=== PATIENT | male | born 1960 | race Caucasian/White ===

== ENCOUNTER → 2023-11-27 | Outpatient (CLI) | payer OTHER ==
[~2023-11-27] MED LIST: HYDACE5 PO; METF500 PO
[2023-11-27 14:59] LABS: Creatinine, Urine Random 70.9 mg/dL (27.00-270.00); Microalb/Creat Ratio UR, Rand 26.657 mg/g (0.000-30.000); Microalbumin, Random Urine 18.9 mg/L (0.000-20.000)
== END ==
LOC: LAB SHORT 12:26 → LAB 12:26
PROVIDERS: Family Medicine
DX: E11.9 Type 2 diabetes mellitus without complications (principal)
CPT/HCPCS: 82043; 82570

== ENCOUNTER 2024-05-10 07:58 | Day surgery (SDC) | payer OTHER ==
[~2024-05-10] VITALS: Ht 180.3 cm; Wt 79.3 kg
[~2024-05-10 07:58] MED LIST changes: +Lactated Ringer's 1,000 ML IV ONE; +propofoL 50 ML IV ONE
[2024-05-10] MEDS ORDERED: AMLO10 (08:46)
[2024-05-10] MEDS ORDERED: METF500 (08:46)
[2024-05-10] MEDS ORDERED: LISI20 (08:47)
[2024-05-10] MEDS ORDERED: STEGLATRO15 MG (08:47)
[2024-05-10] MEDS ORDERED: Crestor40 MG (08:56)
[2024-05-10] MEDS ORDERED: RYBELSUS3 MG (08:56)
[2024-05-10] MEDS ORDERED: Lactated Ringer's 1,000 ML IV ONE (09:48)
[2024-05-10 11:15] VITALS: BP 117/77
== END 2024-05-10 11:15 | disposition home or self-care (01) ==
LOC: ORSCSDS 07:58
PROVIDERS: Internal Medicine Gastroenterology
PROC: 0DBK8ZX Excision of Ascending Colon, Via Natural or Artificial Opening Endoscopic, Diagnostic (ICD-10-PCS; principal; 2024-05-10 09:30)
PROC: 0DBP8ZX Excision of Rectum, Via Natural or Artificial Opening Endoscopic, Diagnostic (ICD-10-PCS; principal; 2024-05-10 09:30)
PROC: 0DBN8ZX Excision of Sigmoid Colon, Via Natural or Artificial Opening Endoscopic, Diagnostic (ICD-10-PCS; principal; 2024-05-10 09:30)
PROC: 0DBL8ZX Excision of Transverse Colon, Via Natural or Artificial Opening Endoscopic, Diagnostic (ICD-10-PCS; principal; 2024-05-10 09:30)
PROC: 0DBM8ZX Excision of Descending Colon, Via Natural or Artificial Opening Endoscopic, Diagnostic (ICD-10-PCS; principal; 2024-05-10 09:30)
DX: Z12.11 Encounter for screening for malignant neoplasm of colon (principal); D12.2 Benign neoplasm of ascending colon; D12.4 Benign neoplasm of descending colon; K63.5 Polyp of colon; K62.1 Rectal polyp; Z87.891 Personal history of nicotine dependence; E78.5 Hyperlipidemia, unspecified; E11.9 Type 2 diabetes mellitus without complications; I10 Essential (primary) hypertension; Z79.84 Long term (current) use of oral hypoglycemic drugs; Z79.899 Other long term (current) drug therapy
CPT/HCPCS: 82947; 88305; J2704; J7120

== ENCOUNTER → 2025-02-21 | Outpatient (CLI) | payer OTHER ==
[~2025-02-21] MED LIST changes: +AMLO10; +Crestor40 MG; +LISI20; -Lactated Ringer's 1,000 ML IV ONE; +METF500; +RYBELSUS3 MG; +STEGLATRO15 MG; -propofoL 50 ML IV ONE
[2025-02-21 18:21] LABS: Creatinine, Urine Random 34.5 mg/dL (27.00-270.00); Microalb/Creat Ratio UR, Rand 30.145 mg/g (0.000-30.000); Microalbumin, Random Urine 10.4 mg/L (0.000-20.000)
== END | disposition home or self-care (01) ==
LOC: LAB 09:25 → LAB SHORT 09:25
PROVIDERS: Family Medicine
DX: E11.9 Type 2 diabetes mellitus without complications (principal)
CPT/HCPCS: 82043; 82570